=== PATIENT | female | born 1940 | race Caucasian/White ===

== ENCOUNTER 2017-04-28 11:30 | Day surgery (SDC) | payer OTHER ==
[2017-04-27 16:12] VITALS: BMI 31.1
[2017-04-28] MEDS ORDERED: MIDAZOLAM HCL 2 MG/2 ML SINGLE DOSE VIAL ONE (12:35)
[2017-04-28] MEDS ORDERED: PROPOFOL 20 ML ONE (12:35)
[2017-04-28] MEDS ORDERED: ONDANSETRON 4 MG/2 ML VIAL ONE (12:35)
[2017-04-28] MEDS ORDERED: ROCURONIUM BROMIDE 50 MG/5 ML VIAL ONE (12:35)
[2017-04-28] MEDS ORDERED: DEXAMETHASONE SOD PHOSPHATE 4 MG/1 ML VIAL ONE ×2 (12:35→14:11)
[2017-04-28] MEDS ORDERED: LIDOCAINE HCL/PF 2% SDV 5ML VIAL ONE (12:35)
[2017-04-28] MEDS ORDERED: PROMETHAZINE HCL 25 MG/1 ML VIAL IVPUSH PRN (12:57)
[2017-04-28] MEDS ORDERED: oxyCODONE HCL 5 MG TABLET PO PRN ×3 (12:57→16:54)
[2017-04-28] MEDS ORDERED: ONDANSETRON 4 MG/2 ML VIAL IVPUSH PRN ×2 (12:57→15:22)
[2017-04-28] MEDS ORDERED: GUM MASTIC/STORAX/MSAL/ALCOHOL 1 DRP DROPSBTL MC ONE (12:57)
[2017-04-28] MEDS ORDERED: LACTATED RINGERS SOLUTION 1,000 ML IV SCH (13:00)
[2017-04-28] MEDS ORDERED: DESFLURANE GAS 240 ML BOTTLE IH ONE (13:24)
[2017-04-28] MEDS ORDERED: PHENYLEPHRINE HCL 10 MG/1 ML SINGLE DOSE VIAL ONE (14:12)
[2017-04-28] MEDS ORDERED: ceFAZolin SODIUM 1 GM VIAL ONE (14:12)
[2017-04-28] MEDS ORDERED: BUPIVACAINE HCL/PF 0.5% (5MG/ML) 10 ML VIAL ONE (14:41)
[2017-04-28] MEDS ORDERED: NEOSTIGMINE METHYLSULFATE 0.5 MG/ML - 10 ML MDV ONE (15:05)
--- NOTE | 2017-04-28 15:06 | HP ---
History & Physical Update - History History: No Change - Physical Physical: No Change - Assessment Assessment: No Change - Plan Plan: No Change
--- NOTE | 2017-04-28 15:10 | OP ---
Operative Note - Note: Operative Date: 04/28/17 Pre-Operative Diagnosis: Non-toxic multinodular goiter Operation: Near total thyroidectomy Findings: Multinodular goiter Implants: none Post-Operative Diagnosis: Same as Pre-op Surgeon: Jimena Garza Belly Dump Driver: Tati Mcginnis Anesthesiologist/SOLE STAINER: Melo Mcneil Anesthesia: General Specimens Removed: near total thyroid Estimated Blood Loss (mls): 50 Drains & Tubes with Location: LUIS DANIEL- neck Operative Report Dictated: Yes
[2017-04-28] MEDS ORDERED: HYDROmorphone HCL CARPU-JECT 1 MG/1 ML DISP.SYRIN IVPB PRN (15:21)
[2017-04-28] MEDS ORDERED: SODIUM CHLORIDE 1,000 ML IV SCH (15:30)
[2017-04-28] MEDS ORDERED: ACETAMINOPHEN 325 MG TABLET (FP) PO PRN ×2 (16:53→16:54)
[2017-04-28 20:37] LABS: ALBUMIN 3.9 g/dl (3.5-5.0); ALK PHOS 113 U/L (32-92); ANION GAP 8 (8-16); BILIRUBIN,TOTAL 0.6 mg/dl (0.2-1.0); CALCIUM 8.8 mg/dl (8.4-10.2); CO2 25 mmol/L (22-28); CREATININE 0.7 mg/dl (0.6-1.3); GLUCOSE,RANDOM 126 mg/dl (74-106); SGOT/AST 27 U/L (10-42); SGPT/ALT 18 U/L (10-40); TOT PROT 7.9 g/dl (6.4-8.3)
[2017-04-28 22:35] VITALS: TEMP 98.5
--- NOTE | 2017-04-28 22:52 | OP ---
DATE OF OPERATION: 04/28/2017 PREOPERATIVE DIAGNOSIS: Multinodular goiter bilateral. POSTOPERATIVE DIAGNOSIS: Multinodular goiter bilateral. PROCEDURE: Near total thyroidectomy. SURGEON: Jimena Garza M.D. HOT BOX SPOTTER: Cynthia Lopez ANESTHESIA: General endotracheal intubation. DESCRIPTION OF PROCEDURE: A 77-year-old female with known history of bilateral thyroid nodules, had multiple attempted with no clear diagnostic definitive diagnosis, was brought to the operating room. Neck was prepped and draped. Local with Marcaine as well as general was administered, and the neck was extended. Incision was made on the lower neck crease. Platysma muscle was opened, and the midline was again opened, and the lateral dissection of the thyroid lobe was done initially on the left side, medial detachment of the thyroid gland was done, and the superior thyroid gland was divided at the lobe, and it was brought down. Middle thyroid vein was again identified and tied with 2-0 silk, and the inferior thyroid arteries were identified and tied with 3-0 silk, and also the bipolar cautery, and the nerve identified on the left side, and thyroid gland was taken away from isthmus. Similarly on the right side it was done, and right side of the recurrent laryngeal nerve was not identified, but dissection was done away from all this, and the gland was removed. After adequate hemostasis, introduced. Platysma muscle was closed, and patient went to the recovery extubated. JIMENA GARZA M.D. /[id number]
[2017-04-29] MEDS ORDERED: LEVOTHYROXINE NA 100 MCG TABLET (FP) ONE (06:13)
[2017-04-29] MEDS ORDERED: LEVOTHYROXINE NA 75 MCG TABLET (FP) ONE (06:13)
[2017-04-29] MEDS ORDERED: LEVOTHYROXINE 100 MCG, LEVOTHYROXINE 75 MCG PO SCH (07:00)
[2017-04-29] MEDS ORDERED: LEVOTHYROXINE NA 175 MCG TABLET PO SCH (07:00)
[2017-04-29 08:28] LABS: ALBUMIN 3.5 g/dl (3.5-5.0); ALK PHOS 105 U/L (32-92); ANION GAP 6 (8-16); BILIRUBIN,TOTAL 0.6 mg/dl (0.2-1.0); CALCIUM 8.8 mg/dl (8.4-10.2); CO2 26 mmol/L (22-28); CREATININE 0.7 mg/dl (0.6-1.3); GLUCOSE,RANDOM 118 mg/dl (74-106); SGOT/AST 22 U/L (10-42); SGPT/ALT 17 U/L (10-40); TOT PROT 7.1 g/dl (6.4-8.3)
[2017-04-29 09:13] VITALS: BP 115/58; PULSE 67
[2017-04-29] MEDS ORDERED: LOSARTAN POTASSIUM 50 MG TABLET (FP) PO SCH (10:00)
[2017-04-29] MEDS ORDERED: amLODIPine BESYLATE 10 MG TABLET (FP) PO SCH (10:00)
[2017-04-29] MEDS ORDERED: CHOLECALCIFEROL (VITAMIN D3) 1,000 UNIT TABLET (FP) PO SCH (10:00)
[2017-04-29] MEDS ORDERED: LEVOTHYROXINE NA 100 MCG TABLET (FP) PO SCH (12:58)
--- NOTE | 2017-04-29 12:58 | PN ---
Progress Note (short form) - Note Progress Note: Doing well. No complaints. Eating ok. Denies CP, SOB, abd pain, N/V/D, voice changes, trouble swallowing, neck swelling, perioral/extremity numbness/tingling. Patient removed drain on her own this morning by accident. General: NAD, greenlandic speaking, family translating Neck: incision c/d/i with sutures, no edema or erythema Heart: RRR Lungs: CTA Abdomen: soft, non-tender Neuro: No focal deficits, no voice changes Dx: Non-toxic multinodular goiter One day s/p near total thyroidectomy Calcium levels wnl. Regular diet. Activity as tolerated. Levothyroxine 125mcg daily. Percocet for pain. D/C home today.
--- NOTE | 2017-04-30 11:22 | PATH ---
Surgical Pathology Report Patient Name: CHRIS JAIMES [facility]. Rec. #: [id number] /Age/Gender: 1940 (Age: 77) / F Account: [id number] Location: [facility] Taken: 04/28/2017 Received: 04/28/2017 Reported: 04/30/2017 Physicians: Jimena Garza M.D. Specimen(s) Received A: RIGHT LOBE AND ISTHMUS B: THYROID, LEFT LOBE Clinical History Multinodular goiter Final Diagnosis A. THYROID, RIGHT LOBE AND ISTHMUS, EXCISION: BENIGN THYROID TISSUE WITH MULTIPLE BENIGN ADENOMATOUS NODULES (MULTINODULAR GOITER). FOCAL DYSTROPHIC CALCIFICATION PRESENT. B. THYROID, LEFT LOBE, EXCISION: BENIGN THYROID TISSUE WITH MULTIPLE BENIGN ADENOMATOUS NODULES (MULTINODULAR GOITER). DYSTROPHIC CALCIFICATION PRESENT. Electronically Signed Jose Mason M.D. Gross Description A. Received in formalin labelled "right lobe and isthmus " is a 13 gram portion of thyroid tissue containing a 4.6 x 2.3 x 2.0 right lobe of thyroid with an attached 1.7 x 1.0 x 0.6 cm portion of isthmus. Cut surface reveals a multinodular mcfarland interior. No grossly obvious papillary areas are identified. Employee Relations Assistant sections are submitted in 5 cassettes, with sections from the isthmus submitted in cassette A1. B. Received in formalin labelled "left lobe thyroid" is a 9 gram, 5.0 x 2.8 x 1.5 cm lobe of thyroid. The margin is inked. Cut surface reveals a [place]cf[place]land interior with a 1.5 cm greatest dimension calcified nodule. No grossly obvious papillary areas are identified. Employee Relations Assistant sections are submitted in 5 cassettes with cassettes 4 and 5 submitted for decalcification. [facility]/04/29/2017 [facility]/04/29/2017
== END 2017-04-29 13:07 | disposition home or self-care (01) ==
LOC: FASU 11:30 → FM/S 17:03 → FASU 04-29 13:07
PROVIDERS: ATTEND Surgery Vascular Surgery
PROC: 0GBH0ZZ Excision of Right Thyroid Gland Lobe, Open Approach (ICD-10-PCS; 2017-04-28)
PROC: 0GBG0ZZ Excision of Left Thyroid Gland Lobe, Open Approach (ICD-10-PCS; principal; 2017-04-28 13:34)
DX: E04.2 Nontoxic multinodular goiter (principal)
CPT/HCPCS: 36415; 80053; 85027; 88307-TC; 88311-TC; 94760